=== PATIENT | female | born 1935 | race Caucasian/White ===

== ENCOUNTER 2017-03-10 14:35 | Inpatient (IN) | payer BC ==
[~2017-03-10] VITALS: Ht 144.8 cm; Wt 31.8 kg
[2017-03-10] MEDS ORDERED: IV NORMAL SALINE 1000 ML BAG IV ONE (15:00)
[2017-03-10 15:42] LABS: EOSINOPHILS % (AUTO) 0.1 % (0.0-7.0); HEMOGLOBIN 11.1 g/dL (10.9-14.3); MONOCYTES # (AUTO) 0.8 K/uL (2.0-10.0); PLATELET COUNT (AUTO) 600 K/uL (179-408)
[2017-03-10 15:44] LABS: BASOPHILS # (AUTO) 0.1 K/uL (0.0-8.0); BASOPHILS % (AUTO) 0.2 % (0.0-2.0); EOSINOPHILS # (AUTO) 0.1 K/uL (0.0-0.7); HEMATOCRIT 35.1 % (31.2-41.9); LYMPHOCYTES # (AUTO) 1.3 K/uL (20.0-40.0); MEAN CORPUSCULAR HEMOGLOBIN 22.9 uug (24.7-32.8); MEAN CORPUSCULAR HGB CONC 32 g/dL (32.3-35.6); MONOCYTES % (AUTO) 1.9 % (0.0-11.0); NEUTROPHILS % (AUTO) 94.8 % (38.5-71.5); RED BLOOD CELL COUNT(AUTO) 4.87 MIL/uL (3.63-4.92)
[2017-03-10 15:51] LABS: WHITE BLOOD COUNT (AUTO) 42.2 K/uL (3.8-11.8)
[2017-03-10 15:52] LABS: CARBON DIOXIDE 18 mmol/L (21-32); CHLORIDE 98 mmol/L (98-107); CREATININE 2.1 mg/dL (0.6-1.3); GLUCOSE 95 mg/dL (74-106); POTASSIUM 4.7 mmol/L (3.5-5.1); UREA NITROGEN, BLOOD 42 mg/dL (7-18)
[2017-03-10 15:58] LABS: ALANINE AMINOTRANSFERASE 6 U/L (14-59); ALKALINE PHOSPHATASE 132 U/L (50-136); ASPARTATE AMINOTRANSFERASE 9 U/L (15-37); BILIRUBIN,DIRECT 0.1 mg/dL (0.0-0.2); BILIRUBIN,TOTAL 0.3 mg/dL (0.2-1.0); LIPASE 39 U/L (73-393); TOTAL PROTEIN, SERUM 6.3 g/dL (6.4-8.2)
[2017-03-10] MEDS ORDERED: ONDANSETRON 4 MG/2 ML VIAL IV ONE (16:00)
[2017-03-10] MEDS ORDERED: METRONIDAZOLE 500 MG/NS 100 ML PIGGYBACK IV ONE (16:00)
[2017-03-10] MEDS ORDERED: LEVOFLOXACIN 250MG /D5W 250 MG in PREMIXED 1 EACH IV ONE (16:00)
[2017-03-10] MEDS ORDERED: ONDANSETRON 4 MG/2 ML VIAL ONE (16:22)
[2017-03-10] MEDS ORDERED: LEVOFLOXACIN 250MG /D5W 50 ML IV ONE (16:23)
[2017-03-10] MEDS ORDERED: METRONIDAZOLE 500 MG/NS 100ML 100 ML IV ONE (16:23)
[2017-03-10 16:25] LABS: BAND % (MANUAL) 7 % (0-10); LYMPHOCYTES % (MANUAL) 5 % (20-40); MONOCYTES % (MANUAL) 3 % (2-10); NEUTROPHILS % (MANUAL) 85 % (42-75)
[2017-03-10] MEDS ORDERED: LIPITOR (17:47)
[2017-03-10] MEDS ORDERED: CLARITIN (17:47)
[2017-03-10] MEDS ORDERED: PROBIOTIC (17:47)
[2017-03-10] MEDS ORDERED: PROTONIX (17:47)
[2017-03-10] MEDS ORDERED: IRON (17:47)
[2017-03-10] MEDS ORDERED: POTASSIUM (17:47)
--- NOTE | 2017-03-10 17:47 | NUR ---
Pt states she is unable to recall all of her home medications and doses at this time, pt's home medication information updated with minimal information provided.
--- NOTE | 2017-03-10 18:22 | NUR ---
mse completed, sbar report to homer rn, admit order written.
[2017-03-10 18:58] VITALS: BP 113/58
--- NOTE | 2017-03-10 19:00 | NUR ---
Received patient in bed alert oriented, no complain of pain at this time, admitted patient in the Tele Unit, under the care of Roman Lucas, belonging list done.
[2017-03-10 20:00] VITALS: BP 94/55
--- NOTE | 2017-03-10 20:30 | NUR ---
Dr Quintanilla came to see the patient, awaiting for admission orders.
[2017-03-11] VITALS: BP 97/50
[2017-03-11] MEDS ORDERED: ACETAMINOPHEN 325 MG TABLET PO PRN (00:45)
[2017-03-11] MEDS: PIPERACILLIN/TAZOBACTAM/D5W 2.25 G in PREMIXED 1 EACH IV SCH ×2 (00:45→06:25)
[2017-03-11] MEDS ORDERED: MORPHINE SULFATE 2 MG/1 ML DISP.SYRIN IV PRN (00:45)
[2017-03-11] MEDS: IV D5/ 0.9% NACL 1,000 ML IV PRN ×2 (01:12→20:29)
[2017-03-11] MEDS ORDERED: ONDANSETRON 4 MG/2 ML VIAL ONE ×2 (01:23→07:02)
[2017-03-11] MEDS ORDERED: PIPERACILLIN/TAZO 2.25 GM VIAL ONE (01:40)
[2017-03-11] MEDS: ONDANSETRON 4 MG/2 ML VIAL IV PRN ×3 (01:44→17:46)
[2017-03-11 04:00] VITALS: BP 112/55
[2017-03-11 07:08] LABS: EOSINOPHILS # (AUTO) 0.1 K/uL (0.0-0.7); IRON, SERUM 14 ug/dL (50-175); MEAN CORPUSCULAR HGB CONC 33 g/dL (32.3-35.6); MONOCYTES # (AUTO) 0.6 K/uL (2.0-10.0)
[2017-03-11 07:23] LABS: BASOPHILS % (AUTO) 0.1 % (0.0-2.0); EOSINOPHILS % (AUTO) 0.2 % (0.0-7.0); LYMPHOCYTES # (AUTO) 1.2 K/uL (20.0-40.0); LYMPHOCYTES % (AUTO) 4.2 % (20.5-51.5); MEAN CORPUSCULAR HEMOGLOBIN 23.2 uug (24.7-32.8); MEAN CORPUSCULAR VOLUME 71.3 fL (75.5-95.3); MONOCYTES % (AUTO) 2.2 % (0.0-11.0); NEUTROPHILS # (AUTO) 25.7 K/uL (1.8-8.9); NEUTROPHILS % (AUTO) 93.3 % (38.5-71.5); PLATELET COUNT (AUTO) 573 K/uL (179-408); RED BLOOD CELL COUNT(AUTO) 4.36 MIL/uL (3.63-4.92)
[2017-03-11 07:24] LABS: HEMATOCRIT 31.1 % (31.2-41.9); HEMOGLOBIN 10.1 g/dL (10.9-14.3); WHITE BLOOD COUNT (AUTO) 27.6 K/uL (3.8-11.8)
[2017-03-11 07:31] LABS: ALANINE AMINOTRANSFERASE 7 U/L (14-59); ALKALINE PHOSPHATASE 103 U/L (50-136); ASPARTATE AMINOTRANSFERASE 8 U/L (15-37); BILIRUBIN,TOTAL 0.3 mg/dL (0.2-1.0); CARBON DIOXIDE 18 mmol/L (21-32); CHLORIDE 106 mmol/L (98-107); CHOLESTEROL 95 mg/dL (<200); CREATININE 1.5 mg/dL (0.6-1.3); GLUCOSE 121 mg/dL (74-106); HDL CHOLESTEROL 13 mg/dL (40-60); MAGNESIUM 1.9 mg/dL (1.8-2.4); PHOSPHOROUS 4.4 mg/dL (2.5-4.9); POTASSIUM 4.1 mmol/L (3.5-5.1); TOTAL PROTEIN, SERUM 5.1 g/dL (6.4-8.2); TRIGLYCERIDES 103 MG/DL (30-150); UREA NITROGEN, BLOOD 35 mg/dL (7-18)
[2017-03-11 08:27] LABS: THYROID STIMULATING HORMONE 2.509 mIU/mL (0.358-3.740)
[2017-03-11] MEDS: PANTOPRAZOLE SODIUM 40 MG TABLET.DR PO SCH (08:28)
[2017-03-11] MEDS: ACIDOPHILUS/BULGARICUS CHEW TAB PO SCH ×2 (08:28→21:04)
[2017-03-11 08:40] LABS: BAND % (MANUAL) 20 % (0-10); BASOPHILS % (MANUAL) 1 % (0-2); EOSINOPHILS % (MANUAL) 1 % (0-8); LYMPHOCYTES % (MANUAL) 1 % (20-40); METAMYELOCYTES % 2 % (0-1); MONOCYTES % (MANUAL) 2 % (2-10); MYELOCYTES % 2 % (0-0); NEUTROPHILS % (MANUAL) 71 % (42-75)
[2017-03-11] MEDS: MORPHINE SULFATE 4 MG/1 ML DISP.SYRIN IV PRN (09:32)
[2017-03-11 11:41] VITALS: BP 113/92
--- NOTE | 2017-03-11 12:40 | NUR ---
MEDICATIONS TAKEN OUT OF PYXIS BY BUTCHER.
--- NOTE | 2017-03-11 13:15 | NUR ---
RECEIVED REPORT FROM JOSE/DARBY + ARACELI IZAGUIRRE Addendum: 03/11/17 at 1329 by AILYN SHEPPARD RN HARLAN DENNIS
[2017-03-11] MEDS ORDERED: PIPERACILLIN/TAZOBACTAM/D5W 2.25 G in PREMIXED 1 EACH IV SCH (14:00)
[2017-03-11 15:20] VITALS: BP 100/57
[2017-03-11] MEDS: VANCOMYCIN FOR PO/GT/NG USE PO SCH (17:46)
[2017-03-11 20:00] VITALS: BP 120/43
[2017-03-12] VITALS: BP 113/55
[2017-03-12] MEDS: VANCOMYCIN FOR PO/GT/NG USE PO SCH ×4 (00:08→18:11)
[2017-03-12 04:00] VITALS: BP 113/48
[2017-03-12] MEDS: PANTOPRAZOLE SODIUM 40 MG TABLET.DR PO SCH (06:16)
[2017-03-12 06:24] LABS: ALANINE AMINOTRANSFERASE < 6 U/L (14-59); ALKALINE PHOSPHATASE 79 U/L (50-136); ASPARTATE AMINOTRANSFERASE 9 U/L (15-37); BASOPHILS % (AUTO) 0.2 % (0.0-2.0); BILIRUBIN,TOTAL 0.2 mg/dL (0.2-1.0); CARBON DIOXIDE 22 mmol/L (21-32); CHLORIDE 109 mmol/L (98-107); EOSINOPHILS # (AUTO) 0.1 K/uL (0.0-0.7); EOSINOPHILS % (AUTO) 1.3 % (0.0-7.0); GLUCOSE 126 mg/dL (74-106); HEMATOCRIT 27.9 % (31.2-41.9); LYMPHOCYTES # (AUTO) 1.3 K/uL (20.0-40.0); LYMPHOCYTES % (AUTO) 15.7 % (20.5-51.5); MEAN CORPUSCULAR HEMOGLOBIN 22.9 uug (24.7-32.8); MEAN CORPUSCULAR HGB CONC 32 g/dL (32.3-35.6); MEAN CORPUSCULAR VOLUME 70.9 fL (75.5-95.3); MONOCYTES # (AUTO) 0.5 K/uL (2.0-10.0); MONOCYTES % (AUTO) 5.9 % (0.0-11.0); NEUTROPHILS # (AUTO) 6.1 K/uL (1.8-8.9); NEUTROPHILS % (AUTO) 76.9 % (38.5-71.5); PHOSPHOROUS 2.5 mg/dL (2.5-4.9); PLATELET COUNT (AUTO) 490 K/uL (179-408); RED BLOOD CELL COUNT(AUTO) 3.94 MIL/uL (3.63-4.92); TOTAL PROTEIN, SERUM 4.6 g/dL (6.4-8.2); UREA NITROGEN, BLOOD 18 mg/dL (7-18)
[2017-03-12 06:38] LABS: *OCCULT BLOOD STOOL POSITIVE (NEGATIVE)
[2017-03-12 06:48] LABS: POTASSIUM 2.8 mmol/L (3.5-5.1)
--- NOTE | 2017-03-12 06:54 | NUR ---
Called on-call Dr. Coyle regarding critical lab Potassium 2.8. Ordered state dose of 60meq one time. Albumin 1.4 and to wait for daytime staff for orders. Will endorse to oncoming staff. Orders noted and carried out.
[2017-03-12] MEDS ORDERED: POTASSIUM CHLORIDE 20 MEQ TAB.PRT.SR PO ONE ×2 (07:00→11:00)
[2017-03-12] MEDS: ACIDOPHILUS/BULGARICUS CHEW TAB PO SCH ×2 (09:03→21:38)
[2017-03-12] MEDS: MORPHINE SULFATE 4 MG/1 ML DISP.SYRIN IV PRN ×3 (10:07→21:57)
[2017-03-12 10:44] LABS: BAND % (MANUAL) 17 % (0-10); LYMPHOCYTES % (MANUAL) 16 % (20-40); MONOCYTES % (MANUAL) 7 % (2-10); NEUTROPHILS % (MANUAL) 60 % (42-75)
[2017-03-12 11:40] VITALS: BP 97/42
[2017-03-12] MEDS: IV D5/ 0.9% NACL 1,000 ML IV PRN (12:46)
[2017-03-12 16:00] VITALS: BP 120/41
--- NOTE | 2017-03-12 16:00 | NUR ---
seen and examined by Dinorah PROMOTION WRITER, with orders for colonoscopy on friday and colonoscopy prep tomorrow in AM, All orders noted and carried out, will endorse accordingly
[2017-03-12] MEDS ORDERED: GOLYTELY 4000 ML BOTTLE PO ONE (16:15)
[2017-03-12 20:00] VITALS: BP 104/68
[2017-03-12] MEDS: METRONIDAZOLE 500 MG/NS 100ML 500 MG in PREMIXED 1 EACH IV SCH (21:39)
[2017-03-13] MEDS: VANCOMYCIN FOR PO/GT/NG USE PO SCH ×4 (00:18→18:35)
[2017-03-13 04:00] VITALS: BP 92/64
[2017-03-13] MEDS: METRONIDAZOLE 500 MG/NS 100ML 500 MG in PREMIXED 1 EACH IV SCH ×3 (05:55→22:18)
[2017-03-13 06:50] LABS: ALANINE AMINOTRANSFERASE 9 U/L (14-59); ALKALINE PHOSPHATASE 72 U/L (50-136); ASPARTATE AMINOTRANSFERASE 10 U/L (15-37); BILIRUBIN,TOTAL 0.3 mg/dL (0.2-1.0); CARBON DIOXIDE 21 mmol/L (21-32); CHLORIDE 110 mmol/L (98-107); CREATININE 0.8 mg/dL (0.6-1.3); GLUCOSE 117 mg/dL (74-106); MAGNESIUM 1.8 mg/dL (1.8-2.4); PHOSPHOROUS 1.8 mg/dL (2.5-4.9); POTASSIUM 4.1 mmol/L (3.5-5.1); TOTAL PROTEIN, SERUM 4.5 g/dL (6.4-8.2); UREA NITROGEN, BLOOD 11 mg/dL (7-18)
[2017-03-13 07:00] LABS: BASOPHILS % (AUTO) 0.2 % (0.0-2.0); EOSINOPHILS # (AUTO) 0.1 K/uL (0.0-0.7); EOSINOPHILS % (AUTO) 1.7 % (0.0-7.0); HEMATOCRIT 28.6 % (31.2-41.9); LYMPHOCYTES # (AUTO) 1.2 K/uL (20.0-40.0); LYMPHOCYTES % (AUTO) 17.6 % (20.5-51.5); MEAN CORPUSCULAR HEMOGLOBIN 22.5 uug (24.7-32.8); MEAN CORPUSCULAR HGB CONC 32 g/dL (32.3-35.6); MEAN CORPUSCULAR VOLUME 71.6 fL (75.5-95.3); MONOCYTES # (AUTO) 0.6 K/uL (2.0-10.0); MONOCYTES % (AUTO) 9.4 % (0.0-11.0); NEUTROPHILS # (AUTO) 4.7 K/uL (1.8-8.9); NEUTROPHILS % (AUTO) 71.1 % (38.5-71.5); PLATELET COUNT (AUTO) 377 K/uL (179-408); RED BLOOD CELL COUNT(AUTO) 3.99 MIL/uL (3.63-4.92); WHITE BLOOD COUNT (AUTO) 6.6 K/uL (3.8-11.8)
[2017-03-13] MEDS: PANTOPRAZOLE SODIUM 40 MG TABLET.DR PO SCH (07:04)
[2017-03-13] MEDS: ACIDOPHILUS/BULGARICUS CHEW TAB PO SCH ×2 (08:26→20:45)
[2017-03-13] MEDS ORDERED: MAGNESIUM SULFATE/D5W 100 ML IV SCH (08:30)
[2017-03-13 10:53] LABS: BAND % (MANUAL) 13 % (0-10); BASOPHILS % (MANUAL) 1 % (0-2); EOSINOPHILS % (MANUAL) 2 % (0-8); LYMPHOCYTES % (MANUAL) 13 % (20-40); METAMYELOCYTES % 5 % (0-1); MONOCYTES % (MANUAL) 13 % (2-10); MYELOCYTES % 4 % (0-0); NEUTROPHILS % (MANUAL) 49 % (42-75)
[2017-03-13] MEDS: MORPHINE SULFATE 4 MG/1 ML DISP.SYRIN IV PRN ×2 (10:53→16:22)
[2017-03-13] MEDS ORDERED: GOLYTELY 4000 ML BOTTLE PO ONE (11:00)
[2017-03-13 11:03] VITALS: BP 99/46
[2017-03-13] MEDS ORDERED: NEUTRA PHOS PACKET PO ONE (12:15)
[2017-03-13 15:08] VITALS: BP 106/48
--- NOTE | 2017-03-13 19:00 | NUR ---
pt has been drinking golytly since 11am today. pt has been passing stool and on a clear liquid diet. new iv on the right elbow 22 gauge. The plan is for tomorrow to have an EGD and colonscopy. pt is agreeable with plan. Pt is aox4 cooperative. Pt shows no signs of respiratory distress at this time. pt stable at this time. continue to monitor pt
[2017-03-13 20:00] VITALS: BP 103/67
--- NOTE | 2017-03-13 20:30 | NUR ---
DELBERT SALINAS. CALLED IN, CANCELLED EGD AND COLONOSCOPY FOR FRIDAY,TALKED AND EXPLAINED TO PATIENT AND FAMILY,VERBALIZED UNDERSTANDING,PATIENT CONTINUE ON CONTACT ISOLATION FOR POSITIVE C DIFF STOOL.
[2017-03-14] MEDS: VANCOMYCIN FOR PO/GT/NG USE PO SCH ×5 (00:11→23:24)
[2017-03-14] MEDS: IV D5/ 0.9% NACL 1,000 ML IV PRN (03:53)
[2017-03-14 04:00] VITALS: BP 93/57
[2017-03-14] MEDS: METRONIDAZOLE 500 MG/NS 100ML 500 MG in PREMIXED 1 EACH IV SCH (06:18)
[2017-03-14] MEDS: PANTOPRAZOLE SODIUM 40 MG TABLET.DR PO SCH (06:20)
[2017-03-14 06:50] LABS: BASOPHILS % (AUTO) 0.3 % (0.0-2.0); EOSINOPHILS # (AUTO) 0.4 K/uL (0.0-0.7); EOSINOPHILS % (AUTO) 5.6 % (0.0-7.0); HEMOGLOBIN 9.7 g/dL (10.9-14.3); LYMPHOCYTES # (AUTO) 1.8 K/uL (20.0-40.0); LYMPHOCYTES % (AUTO) 27.8 % (20.5-51.5); MEAN CORPUSCULAR HEMOGLOBIN 23.1 uug (24.7-32.8); MEAN CORPUSCULAR HGB CONC 32 g/dL (32.3-35.6); MEAN CORPUSCULAR VOLUME 71.7 fL (75.5-95.3); MONOCYTES # (AUTO) 0.6 K/uL (2.0-10.0); MONOCYTES % (AUTO) 9.4 % (0.0-11.0); NEUTROPHILS # (AUTO) 3.7 K/uL (1.8-8.9); NEUTROPHILS % (AUTO) 56.9 % (38.5-71.5); PLATELET COUNT (AUTO) 375 K/uL (179-408); RED BLOOD CELL COUNT(AUTO) 4.18 MIL/uL (3.63-4.92); WHITE BLOOD COUNT (AUTO) 6.5 K/uL (3.8-11.8)
[2017-03-14 07:38] LABS: ALANINE AMINOTRANSFERASE < 6 U/L (14-59); ALKALINE PHOSPHATASE 71 U/L (50-136); ASPARTATE AMINOTRANSFERASE 11 U/L (15-37); BILIRUBIN,TOTAL 0.2 mg/dL (0.2-1.0); CARBON DIOXIDE 19 mmol/L (21-32); CHLORIDE 106 mmol/L (98-107); CREATININE 0.8 mg/dL (0.6-1.3); GLUCOSE 117 mg/dL (74-106); MAGNESIUM 1.7 mg/dL (1.8-2.4); PHOSPHOROUS 2.5 mg/dL (2.5-4.9); POTASSIUM 3.2 mmol/L (3.5-5.1); TOTAL PROTEIN, SERUM 4.5 g/dL (6.4-8.2); UREA NITROGEN, BLOOD 12 mg/dL (7-18)
[2017-03-14 07:48] LABS: *BILIRUBIN,URIN NEGATIVE (NEGATIVE); *BLOOD, URINE NEGATIVE (NEGATIVE); *CLARITY,URINE CLEAR (CLEAR); *COLOR,URINE YELLOW (YELLOW); *KETONES,URINE NEGATIVE (NEGATIVE); *PROTEIN,URINE 2+ (NEGATIVE); *UROBILINOGEN,URINE 0.2 E.U./dl (NORMAL); LEUKOCYTE ESTERASE ,URINE NEGATIVE (NEGATIVE); NITRITE, URINE POSITIVE (NEGATIVE); UGLUCOSE NEGATIVE (NEGATIVE)
[2017-03-14] MEDS: ACIDOPHILUS/BULGARICUS CHEW TAB PO SCH ×2 (08:03→20:33)
[2017-03-14 08:05] LABS: BACTERIA,URINE MODERATE /HPF (NONE SEEN); SQUAMOUS EPITHELIAL CELL,UR MODERATE /HPF (NONE SEEN)
[2017-03-14 08:31] LABS: BAND % (MANUAL) 7 % (0-10); EOSINOPHILS % (MANUAL) 5 % (0-8); LYMPHOCYTES % (MANUAL) 22 % (20-40); MONOCYTES % (MANUAL) 9 % (2-10); NEUTROPHILS % (MANUAL) 57 % (42-75)
[2017-03-14 11:30] VITALS: BP 105/73
[2017-03-14] MEDS: HYDROCODONE/APAP 5-325MG TABLET PO PRN ×2 (11:46→21:00)
[2017-03-14] MEDS ORDERED: MAGNESIUM OXIDE 400 MG TABLET PO ONE (12:45)
[2017-03-14] MEDS ORDERED: POTASSIUM CHLORIDE 20 MEQ TAB.PRT.SR PO ONE (12:45)
[2017-03-14] MEDS: METRONIDAZOLE 500 MG TABLET PO SCH ×2 (13:11→22:40)
[2017-03-14 15:21] VITALS: BP 94/57
[2017-03-14 19:00] VITALS: BP 106/60
--- NOTE | 2017-03-14 19:30 | NUR ---
RECEIVED PT ALERT AND ORIENTED. NO IV SITE FOR THE PT. DAY SHIFT NURSE REPORTED THAT IT GOT INFILTRATED . NO IV MEDICATION ON PT. PT HAS DRY SKIN AND REDNESS ON BOTH HEELS OF THE FEET. PUT PILLOW TO ELEVATE THE HEELS OF THE FEET. PT AWARE THAT SHE WILL BE NPO AT MIDNIGHT. CALL LIGHT WITHIN REACH. BED ALARM ON. WILL CONTINUE TO MONITOR.
[2017-03-15 04:00] VITALS: BP 105/66
[2017-03-15] MEDS: MORPHINE SULFATE 4 MG/1 ML DISP.SYRIN IV PRN ×3 (04:39→21:21)
[2017-03-15] MEDS: VANCOMYCIN FOR PO/GT/NG USE PO SCH ×3 (06:00→18:39)
[2017-03-15] MEDS: METRONIDAZOLE 500 MG TABLET PO SCH ×3 (06:00→22:32)
[2017-03-15] MEDS: PANTOPRAZOLE SODIUM 40 MG TABLET.DR PO SCH (06:42)
--- NOTE | 2017-03-15 06:42 | NUR ---
PT SLEPT T/O THE SHIFT. MEDICATION FOR 03/15 WAS HELD BECAUSE PT IS ON NPO MIDNIGHT SIP OF WATER IS NOT ENOUGH FOR THE 3 MEDICATIONS SINCE ITS BIG TABLET AND CAPSULES.PT HAVE 2 LIQUID STOOLS ON MY SHIFT. NPO MIDNIGHT. PT SHOWN NO SIGNS OF DISTRESS. CALL LIGHT WITHIN REACH. BED ALARM ON.
[2017-03-15 07:22] LABS: CARBON DIOXIDE 23 mmol/L (21-32); CHLORIDE 109 mmol/L (98-107); CREATININE 0.8 mg/dL (0.6-1.3); GLUCOSE 100 mg/dL (74-106); MAGNESIUM 1.8 mg/dL (1.8-2.4); PHOSPHOROUS 2.5 mg/dL (2.5-4.9); POTASSIUM 3.6 mmol/L (3.5-5.1); UREA NITROGEN, BLOOD 9 mg/dL (7-18)
[2017-03-15 07:24] LABS: BASOPHILS % (AUTO) 0.4 % (0.0-2.0); EOSINOPHILS # (AUTO) 0.3 K/uL (0.0-0.7); EOSINOPHILS % (AUTO) 3.7 % (0.0-7.0); HEMATOCRIT 28.2 % (31.2-41.9); HEMOGLOBIN 9.3 g/dL (10.9-14.3); LYMPHOCYTES # (AUTO) 1.2 K/uL (20.0-40.0); LYMPHOCYTES % (AUTO) 17.6 % (20.5-51.5); MEAN CORPUSCULAR HEMOGLOBIN 23.3 uug (24.7-32.8); MEAN CORPUSCULAR HGB CONC 33 g/dL (32.3-35.6); MEAN CORPUSCULAR VOLUME 70.7 fL (75.5-95.3); MONOCYTES # (AUTO) 0.7 K/uL (2.0-10.0); MONOCYTES % (AUTO) 10.5 % (0.0-11.0); NEUTROPHILS # (AUTO) 4.7 K/uL (1.8-8.9); NEUTROPHILS % (AUTO) 67.8 % (38.5-71.5); PLATELET COUNT (AUTO) 340 K/uL (179-408); RED BLOOD CELL COUNT(AUTO) 3.99 MIL/uL (3.63-4.92); WHITE BLOOD COUNT (AUTO) 6.9 K/uL (3.8-11.8)
[2017-03-15 08:43] LABS: BAND % (MANUAL) 8 % (0-10); BASOPHILS % (MANUAL) 1 % (0-2); EOSINOPHILS % (MANUAL) 4 % (0-8); LYMPHOCYTES % (MANUAL) 22 % (20-40); METAMYELOCYTES % 5 % (0-1); MONOCYTES % (MANUAL) 15 % (2-10); MYELOCYTES % 1 % (0-0); NEUTROPHILS % (MANUAL) 44 % (42-75)
[2017-03-15] MEDS: ACIDOPHILUS/BULGARICUS CHEW TAB PO SCH ×3 (09:00→21:11)
[2017-03-15] MEDS: IV D5/ 0.9% NACL 1,000 ML IV PRN (09:09)
[2017-03-15 11:06] VITALS: BP 110/67
--- NOTE | 2017-03-15 11:55 | NUR ---
1138: patient transferred to GI lab on bed. I gave report to RNs Alana and Lyndsay. Patient is stable. Belongings in room. Addendum: 03/15/17 at 1632 by SAMARA VARELA RN 1307: Patient returned from GI lab. Received report from Nurse Roseann Mayo.
[2017-03-15] MEDS ORDERED: IRR STERIL WATER FOR IRR 1000 ML BOTTLE IR ONE (12:36)
[2017-03-15] MEDS ORDERED: IV D5W-0.9% NS 1000 ML BAG IV ONE (12:36)
[2017-03-15] MEDS ORDERED: ETOMIDATE 20 MG/10 ML VIAL MC ONE (12:36)
[2017-03-15] MEDS ORDERED: ONDANSETRON 4 MG/2 ML VIAL ONE (12:54)
[2017-03-15] MEDS ORDERED: FLUCONAZOLE 200 MG/NS 100ML IV 100 MG in PREMIXED 1 EACH IV SCH (14:00)
[2017-03-15 14:57] VITALS: BP 110/53
[2017-03-15] MEDS ORDERED: FLUCONAZOLE 200 MG TABLET PO ONE (15:00)
[2017-03-15] MEDS: NYSTATIN SUSPENSION 5 ML LIQUID UDC PO SCH ×2 (17:52→21:11)
[2017-03-15 19:00] VITALS: BP 103/60
--- NOTE | 2017-03-15 19:30 | NUR ---
RECEIVED PT AWAKE, ALERT AND ORIENTED. PT SHOWS NO SIGNS OF DISTRESS. IV INTACT AND PATENT. CALL LIGHT WITHIN REACH. BED ALARM ON . SAFETY AND COMFORT PROVIDED. WILL CONTINUE TO MONITOR.
[2017-03-16] MEDS: VANCOMYCIN FOR PO/GT/NG USE PO SCH ×5 (00:05→23:08)
[2017-03-16] MEDS: IV D5/ 0.9% NACL 1,000 ML IV PRN (00:42)
[2017-03-16 05:00] VITALS: BP 98/57
[2017-03-16] MEDS: METRONIDAZOLE 500 MG TABLET PO SCH ×3 (05:43→21:04)
[2017-03-16] MEDS: PANTOPRAZOLE SODIUM 40 MG TABLET.DR PO SCH (06:28)
--- NOTE | 2017-03-16 06:45 | NUR ---
PT SLEPT THROUGHOUT THE SHIFT. PRESCRIBED MEDICATION GIVEN. PT TOLERATED WELL THE MEDICATION. PT GIVEN ONE PAIN MEDICATION ON MY SHIFT. PT SHOWS NO SIGNS OF DISTRESS. SAFETY AND COMFORT PROVIDED.
[2017-03-16 07:11] LABS: BASOPHILS % (AUTO) 0.2 % (0.0-2.0); EOSINOPHILS # (AUTO) 0.1 K/uL (0.0-0.7); EOSINOPHILS % (AUTO) 1.3 % (0.0-7.0); LYMPHOCYTES # (AUTO) 1.7 K/uL (20.0-40.0); LYMPHOCYTES % (AUTO) 15.6 % (20.5-51.5); MEAN CORPUSCULAR HGB CONC 33 g/dL (32.3-35.6); MEAN CORPUSCULAR VOLUME 70.7 fL (75.5-95.3); MONOCYTES # (AUTO) 0.8 K/uL (2.0-10.0); MONOCYTES % (AUTO) 7.5 % (0.0-11.0); NEUTROPHILS # (AUTO) 8.1 K/uL (1.8-8.9); NEUTROPHILS % (AUTO) 75.4 % (38.5-71.5); PLATELET COUNT (AUTO) 384 K/uL (179-408); RED BLOOD CELL COUNT(AUTO) 4.53 MIL/uL (3.63-4.92)
[2017-03-16 07:27] LABS: HEMOGLOBIN 10.4 g/dL (10.9-14.3); WHITE BLOOD COUNT (AUTO) 10.7 K/uL (3.8-11.8)
--- NOTE | 2017-03-16 07:30 | NUR ---
ON BED, RESTING WELL. DENIES DISTRESS
[2017-03-16 07:35] LABS: ALKALINE PHOSPHATASE 61 U/L (50-136); ASPARTATE AMINOTRANSFERASE 10 U/L (15-37); BILIRUBIN,TOTAL 0.3 mg/dL (0.2-1.0); CARBON DIOXIDE 20 mmol/L (21-32); CHLORIDE 111 mmol/L (98-107); CREATININE 0.7 mg/dL (0.6-1.3); GLUCOSE 127 mg/dL (74-106); MAGNESIUM 1.8 mg/dL (1.8-2.4); PHOSPHOROUS 2.8 mg/dL (2.5-4.9); POTASSIUM 3.7 mmol/L (3.5-5.1); TOTAL PROTEIN, SERUM 4.3 g/dL (6.4-8.2); UREA NITROGEN, BLOOD 8 mg/dL (7-18)
[2017-03-16 08:04] LABS: ALANINE AMINOTRANSFERASE < 6 U/L (14-59)
[2017-03-16] MEDS: ACIDOPHILUS/BULGARICUS CHEW TAB PO SCH ×2 (09:18→21:09)
[2017-03-16] MEDS: NYSTATIN SUSPENSION 5 ML LIQUID UDC PO SCH ×4 (09:18→21:05)
[2017-03-16 09:35] LABS: BAND % (MANUAL) 11 % (0-10); BASOPHILS % (MANUAL) 1 % (0-2); EOSINOPHILS % (MANUAL) 2 % (0-8); LYMPHOCYTES % (MANUAL) 16 % (20-40); METAMYELOCYTES % 2 % (0-1); MONOCYTES % (MANUAL) 9 % (2-10); MYELOCYTES % 1 % (0-0); NEUTROPHILS % (MANUAL) 58 % (42-75)
--- NOTE | 2017-03-16 09:49 | NUR ---
BRP REQUESTED, OOB TO BATHROOM TOLERATED WELL .ASSISTED BACK TO BED REQUESTED. HAD X 1 LOOSE STOOL MODERATE AMOUNT. REFUSED IVF , WANTED HEPLOCK OUT. AWARE WILL DISCUSS WITH ROUNDING MD, VERBALIZED UNDERSTANDING.
[2017-03-16 11:37] VITALS: BP 95/59
--- NOTE | 2017-03-16 12:00 | NUR ---
PATIENT REFUSED IVF, DR CORNELIUS AWARE, WILL CONVERT TO HEPLOCK REQUESTED.
--- NOTE | 2017-03-16 12:00 | NUR ---
DR CORNELIUS AWARE OF INABILITY TO OBTAIN URINE VIA CATHETHERIZATION ,MADE NEW ORDER AND CARRIED OUT.
[2017-03-16] MEDS: PROTEIN SUPPLEMENT (PROSTAT) 30 ML LIQUID PO SCH (12:27)
[2017-03-16] MEDS: FLUCONAZOLE 100 MG TABLET PO SCH (13:02)
[2017-03-16 15:31] VITALS: BP 107/63
[2017-03-16 16:22] LABS: *BLOOD, URINE NEGATIVE (NEGATIVE); *CLARITY,URINE SLIGHTLY CLOUDY (CLEAR); *COLOR,URINE Brown (YELLOW); *KETONES,URINE TRACE (NEGATIVE); *PROTEIN,URINE 2+ (NEGATIVE); *UROBILINOGEN,URINE 0.2 E.U./dl (NORMAL); LEUKOCYTE ESTERASE ,URINE NEGATIVE (NEGATIVE); NITRITE, URINE POSITIVE (NEGATIVE); PH,URINE 5.5 (5.0-8.0); UGLUCOSE NEGATIVE (NEGATIVE)
[2017-03-16 16:42] LABS: *BILIRUBIN,URIN NEGATIVE (NEGATIVE)
[2017-03-16 16:43] LABS: BACTERIA,URINE FEW /HPF (NONE SEEN); CALCIUM OXALATE CRYSTALS,UR FEW /HPF (NONE SEEN); MUCUS,URINE MANY /LPF (0-FEW); SQUAMOUS EPITHELIAL CELL,UR MODERATE /HPF (NONE SEEN); WBC,URINE 0-3 /HPF (0-3); YEAST,URINE FEW /HPF (NONE SEEN)
--- NOTE | 2017-03-16 17:55 | NUR ---
DAUGHTER AT BEDSIDE, SUPPORTIVE OF CARE. WILL ADVANCE TO REGULAR DIET.
--- NOTE | 2017-03-16 18:44 | NUR ---
CONTINUED LOOSE STOOL, FOUL ODOR. ABLE TO GET OOB TO [facility] AND BACK. TOLERATING FOOD, FLUIDS WELL.
[2017-03-16 19:54] VITALS: BP 109/66
--- NOTE | 2017-03-16 20:00 | NUR ---
RECEIVED PT AWAKE IN BED, SHE DENIES PAIN OR ANY DISCOMFORT. DAUGHTER AT BEDSIDE. NO LOOSE STOOL AT PRESENT. SAFETY AND COMFORT MEASURES IN PLACE. CALL LIGHT WITHIN PT'S REACH WILL CONTINUE TO MONITOR PT
--- NOTE | 2017-03-17 | NUR ---
PT HAD ONE EPISODE OF LOOSE STOOL WITH NO ODOR
[2017-03-17 04:27] VITALS: BP 100/58
--- NOTE | 2017-03-17 05:23 | NUR ---
PT SLEPT WELL THROUGHOUT THE NIGHT, SHE DENIES PAIN OR ANY DISCOMFORT. SHE HAD 3 EPISODES OF LOOSE STOOLS ON THIS SHIFT. NO FURTHER CONCERNS AT THIS TIME. SAFETY AND COMFORT MEASURES IN PLACE
[2017-03-17] MEDS: VANCOMYCIN FOR PO/GT/NG USE PO SCH ×3 (06:10→17:46)
[2017-03-17] MEDS: METRONIDAZOLE 500 MG TABLET PO SCH ×3 (06:10→21:40)
[2017-03-17] MEDS: PANTOPRAZOLE SODIUM 40 MG TABLET.DR PO SCH (06:10)
[2017-03-17 06:56] LABS: BASOPHILS % (AUTO) 0.5 % (0.0-2.0); EOSINOPHILS # (AUTO) 0.3 K/uL (0.0-0.7); EOSINOPHILS % (AUTO) 3.2 % (0.0-7.0); HEMATOCRIT 30.7 % (31.2-41.9); LYMPHOCYTES # (AUTO) 1.6 K/uL (20.0-40.0); LYMPHOCYTES % (AUTO) 20.1 % (20.5-51.5); MEAN CORPUSCULAR HEMOGLOBIN 23.1 uug (24.7-32.8); MEAN CORPUSCULAR HGB CONC 33 g/dL (32.3-35.6); MEAN CORPUSCULAR VOLUME 70.4 fL (75.5-95.3); MONOCYTES # (AUTO) 0.6 K/uL (2.0-10.0); MONOCYTES % (AUTO) 7.9 % (0.0-11.0); NEUTROPHILS # (AUTO) 5.5 K/uL (1.8-8.9); NEUTROPHILS % (AUTO) 68.3 % (38.5-71.5); PLATELET COUNT (AUTO) 353 K/uL (179-408); RED BLOOD CELL COUNT(AUTO) 4.35 MIL/uL (3.63-4.92)
[2017-03-17 07:02] LABS: ALANINE AMINOTRANSFERASE < 6 U/L (14-59); ALKALINE PHOSPHATASE 58 U/L (50-136); ASPARTATE AMINOTRANSFERASE 5 U/L (15-37); BILIRUBIN,TOTAL 0.5 mg/dL (0.2-1.0); CARBON DIOXIDE 20 mmol/L (21-32); CHLORIDE 110 mmol/L (98-107); CREATININE 0.7 mg/dL (0.6-1.3); GLUCOSE 104 mg/dL (74-106); POTASSIUM 3.5 mmol/L (3.5-5.1); UREA NITROGEN, BLOOD 10 mg/dL (7-18)
[2017-03-17 07:44] LABS: MAGNESIUM 1.8 mg/dL (1.8-2.4); PHOSPHOROUS 2.6 mg/dL (2.5-4.9)
[2017-03-17] MEDS: PROTEIN SUPPLEMENT (PROSTAT) 30 ML LIQUID PO SCH (08:00)
--- NOTE | 2017-03-17 08:00 | NUR ---
Awake, alert, oriented x 3. Discusses plan of care
[2017-03-17] MEDS: ACIDOPHILUS/BULGARICUS CHEW TAB PO SCH ×2 (08:54→20:40)
[2017-03-17] MEDS: NYSTATIN SUSPENSION 5 ML LIQUID UDC PO SCH ×4 (08:54→20:40)
[2017-03-17 09:41] LABS: BAND % (MANUAL) 3 % (0-10); EOSINOPHILS % (MANUAL) 5 % (0-8); LYMPHOCYTES % (MANUAL) 19 % (20-40); MONOCYTES % (MANUAL) 7 % (2-10); NEUTROPHILS % (MANUAL) 66 % (42-75)
[2017-03-17] MEDS: HYDROCODONE/APAP 5-325MG TABLET PO PRN (09:55)
[2017-03-17 11:02] VITALS: BP 105/57
[2017-03-17] MEDS ORDERED: BISACODYL 10 MG SUPP.RECT RC ONE (13:45)
[2017-03-17] MEDS ORDERED: MAGNESIUM CITRATE 296 ML BOTTLE PO ONE (13:45)
[2017-03-17] MEDS ORDERED: FLEET ENEMA 133 ML BOTTLE RC ONE (13:45)
[2017-03-17] MEDS ORDERED: GOLYTELY 4000 ML BOTTLE PO ONE (13:45)
[2017-03-17] MEDS: FLUCONAZOLE 100 MG TABLET PO SCH (14:00)
--- NOTE | 2017-03-17 14:00 | NUR ---
Midline placed to right upper arm g 20. IVF resumed.
--- NOTE | 2017-03-17 14:15 | NUR ---
Scheduled fro colonoscopy, consent signed by patient. Bowel prep started. Refused Mag Citrate and Dulcolax Suppository.
[2017-03-17 15:00] VITALS: BP 100/66
[2017-03-17] MEDS: MORPHINE SULFATE 4 MG/1 ML DISP.SYRIN IV PRN ×2 (15:50→20:46)
--- NOTE | 2017-03-17 19:00 | NUR ---
Left elbow with tereza, change of dressing done. Patient drinking Golytely. Endorsed for further care.
[2017-03-17 20:00] VITALS: BP 127/70
--- NOTE | 2017-03-17 20:00 | NUR ---
PATIENT AWAKE IN BED, DRINKING GOLYTELY FOR COLONOSCOPY PREP IN AM. PATIENT IS A/O X4. NO C/O PAIN AT THIS TIME. DRESSING NOTED TO LEFT ARM/ELBOW, C/D/I. VSS. PATIENT STATED SHE DOES NOT WANT TO TAKE ANY PO MEDS TONIGHT WHILE SHE IS PREPPING FOR COLONOSCOPY IN AM. EDUCATED PATIENT ON THE IMPORTANCE OF TAKING MEDICATIONS SINCE THEY ARE ANTIBIOTICS, BUT PATIENT STILL REFUSED. NO RESP. DISTRESS NOTED. IVF INFUSING WELL TO RIGHT UPPER ARM MID-LINE. CALL LIGHT IN REACH. ALL NEEDS ATTENDED. WILL CONTINUE TO MONITOR
[2017-03-17] MEDS: ONDANSETRON 4 MG/2 ML VIAL IV PRN (20:47)
--- NOTE | 2017-03-17 20:50 | NUR ---
PATIENT C/O PAIN IN HIPS AND LOWER BACK. ALSO C/O NAUSEA. PATIENT GIVEN MORPHINE 1MG IV AND ZOFRAN 4MG IV PRN PER SURGERY MANAGER. VSS. CALL LIGHT IN REACH. ALL NEEDS ATTENDED. WILL CONTINUE TO MONITOR AND ASSESS.
--- NOTE | 2017-03-17 22:00 | NUR ---
PATIENT EDUCATED ON IMPORTANCE OF ELEVATING BILATERAL FEET FOR SWELLING AND TO HELP RELIEVE REDNESS. PINK NOTED TO BOTTOM OF HEELS. PATIENT REFUSED FOR BILATERAL FEET TO BE ELEVATED ON PILLOW. WILL CONTINUE TO MONITOR.
--- NOTE | 2017-03-18 | NUR ---
PATIENT WAS ONLY ABLE TO FINISH 2000ML'S OF GOLYTELY. PATIENT IS VERY NAUSEOUS AND STATED ITS VERY HARD TO TAKE ALL OF IT. INFORMED PATIENT THAT FASHION MARKETER ORDERED, INSERTION OF NG TUBE IF UNABLE TO TOLERATE PO INTAKE OF GOLYTELY. PATIENT REFUSED FOR NG TUBE. QUALITY TESTER NOTIFIED. WILL CONTINUE TO MONITOR.
[2017-03-18] MEDS ORDERED: MAGNESIUM CITRATE 296 ML BOTTLE PO ONE (02:30)
[2017-03-18] MEDS: ONDANSETRON 4 MG/2 ML VIAL IV PRN ×2 (02:32→22:26)
[2017-03-18] MEDS: MORPHINE SULFATE 4 MG/1 ML DISP.SYRIN IV PRN ×3 (02:32→22:26)
--- NOTE | 2017-03-18 02:35 | NUR ---
PATIENT AWAKE, C/O PAIN IN LEFT ARM/ELBOW. PATIENT ALSO FEELS NAUSEOUS. PATIENT GIVEN MORPHINE 1MG IV AND ZOFRAN 4MG IV PRN PER LINER CHECKER. VSS. WILL CONTINUE TO MONITOR. PATIENT IS HAVING LOOSE YELLOWISH LIQUID STOOL. LINER CHECKER NOTIFIED.
[2017-03-18 04:41] VITALS: BP 102/51
[2017-03-18] MEDS: METRONIDAZOLE 500 MG TABLET PO SCH (05:42)
[2017-03-18] MEDS: PANTOPRAZOLE SODIUM 40 MG TABLET.DR PO SCH (05:43)
[2017-03-18] MEDS: VANCOMYCIN FOR PO/GT/NG USE PO SCH ×5 (05:43→23:46)
[2017-03-18] MEDS: IV D5/ 0.9% NACL 1,000 ML IV PRN (06:00)
--- NOTE | 2017-03-18 06:08 | NUR ---
PATIENT ASLEEP IN BED. CONTINUED WITH SMALL AMOUNTS OF YELLOW LIQUID NOTED IN DIAPER WITH SMALL PARTICLES. NOTIFIED WHEAT WASHER. WILL CALL AND INFORM DR. TOMAS. ALL NEEDS ATTENDED.
--- NOTE | 2017-03-18 06:35 | NUR ---
RECEIVED CALL BACK FROM DR. STRATTON REGARDING COLONOSCOPY PREP. RECEIVED ORDER FOR PATIENT TO HAVE FLEET ENEMA X2 AND FOR PATIENT TO FINISH OFF GOLYTELY. PATIENT AGREED TO FLEET ENEMA BUT REFUSED GOLYTELY, MAKES PATIENT VERY NAUSEOUS. WILL CONTINUE TO MONITOR AND ASSESS.
[2017-03-18] MEDS ORDERED: FLEET ENEMA 133 ML BOTTLE RC ONE ×2 (06:45→07:15)
--- NOTE | 2017-03-18 07:11 | NUR ---
CLARIFICATION REGARDING MAG-CITRATE. WAS PREVIOUSLY ORDERED TO BE GIVEN DURING DAYSHIFT. PATIENT REFUSED. RE-ORDERED PER DIRECTOR OF RESTAURANT OPERATIONS. CALLED PHARMACY TO CLARIFY THAT MEDICATION WAS ACCIDENTLY RE-ORDERED PER DIRECTOR OF RESTAURANT OPERATIONS. BUT NEVER GIVEN. DUE TO PATIENT REFUSING,
[2017-03-18 08:00] VITALS: BP 102/52
[2017-03-18] MEDS: PROTEIN SUPPLEMENT (PROSTAT) 30 ML LIQUID PO SCH (08:00)
[2017-03-18] MEDS: ACIDOPHILUS/BULGARICUS CHEW TAB PO SCH ×2 (08:32→21:26)
[2017-03-18] MEDS: NYSTATIN SUSPENSION 5 ML LIQUID UDC PO SCH ×4 (08:33→21:26)
[2017-03-18 12:40] VITALS: BP 117/61
[2017-03-18] MEDS: METRONIDAZOLE 500 MG/NS 100ML 500 MG in PREMIXED 1 EACH IV SCH ×2 (13:56→22:02)
[2017-03-18] MEDS: FLUCONAZOLE 100 MG TABLET PO SCH (14:16)
[2017-03-18] MEDS ORDERED: EPHEDRINE SULFATE 50 MG/ML AMPUL MC ONE (15:26)
[2017-03-18] MEDS ORDERED: IV NORMAL SALINE 1000 ML BAG IV ONE (15:26)
[2017-03-18] MEDS ORDERED: PROPOFOL 200 MG/20 ML BOTTLE IV ONE ×2 (15:26)
[2017-03-18] MEDS ORDERED: LIDOCAINE HCL 1% 20 ML VIAL MC ONE (15:28)
[2017-03-18 16:07] VITALS: BP 123/52
[2017-03-18 19:00] VITALS: BP 107/45
--- NOTE | 2017-03-18 20:00 | NUR ---
RECEIVED PATIENT AWAKE IN BED. A/O X3. DENIES PAIN OR DISCOMFORT AT THIS TIME. NO RESP. DISTRESS NOTED. VSS. MID-LINE INTACT AND NOTED TO RIGHT UPPER ARM WITH IVF INFUSING WELL. ON CONTACT ISOLATION FOR C-DIFF. DRESSING NOTED TO LEFT ELBOW, INTACT. BED ALARM ON. CALL LIGHT IN REACH. ALL NEEDS ATTENDED. WILL CONTINUE TO MONITOR.
[2017-03-19] MEDS: IV D5/ 0.9% NACL 1,000 ML IV PRN ×2 (01:14→21:21)
[2017-03-19] MEDS: VANCOMYCIN FOR PO/GT/NG USE PO SCH ×3 (05:30→17:28)
[2017-03-19] MEDS: METRONIDAZOLE 500 MG/NS 100ML 500 MG in PREMIXED 1 EACH IV SCH ×3 (05:52→22:05)
[2017-03-19 06:00] VITALS: BP 118/57
[2017-03-19] MEDS: PANTOPRAZOLE SODIUM 40 MG TABLET.DR PO SCH (06:17)
--- NOTE | 2017-03-19 06:50 | NUR ---
PATIENT AWAKE IN BED. SLEPT WELL. DENIES PAIN. PATIENT EDUCATED ON IMPORTANCE OF ELEVATING BILATERAL FEET FOR SWELLING AND TO HELP RELIEVE REDNESS. PINK NOTED TO BOTTOM OF HEELS. PATIENT REFUSED FOR BILATERAL FEET TO BE ELEVATED ON PILLOW. WILL CONTINUE TO MONITOR.
[2017-03-19 06:56] LABS: BASOPHILS % (AUTO) 0.4 % (0.0-2.0); EOSINOPHILS # (AUTO) 0.1 K/uL (0.0-0.7); EOSINOPHILS % (AUTO) 1.4 % (0.0-7.0); HEMATOCRIT 27.7 % (31.2-41.9); HEMOGLOBIN 9.2 g/dL (10.9-14.3); LYMPHOCYTES # (AUTO) 1.5 K/uL (20.0-40.0); LYMPHOCYTES % (AUTO) 14.8 % (20.5-51.5); MEAN CORPUSCULAR HEMOGLOBIN 23.3 uug (24.7-32.8); MEAN CORPUSCULAR HGB CONC 33 g/dL (32.3-35.6); MEAN CORPUSCULAR VOLUME 70.1 fL (75.5-95.3); MONOCYTES # (AUTO) 0.8 K/uL (2.0-10.0); MONOCYTES % (AUTO) 7.8 % (0.0-11.0); NEUTROPHILS # (AUTO) 7.8 K/uL (1.8-8.9); NEUTROPHILS % (AUTO) 75.6 % (38.5-71.5); PLATELET COUNT (AUTO) 314 K/uL (179-408); RED BLOOD CELL COUNT(AUTO) 3.96 MIL/uL (3.63-4.92); WHITE BLOOD COUNT (AUTO) 10.4 K/uL (3.8-11.8)
--- NOTE | 2017-03-19 07:00 | NUR ---
PATIENT ON BED ASLEEP, A AND O X 4 NO ACUTE DISTRESS NOTED. WITH RIGHT UPPER MIDLINE INTACT AND PATENT RUNNING, D5NS @60CC/HR, WELL TOLERATED. ON CONTACT ISOLATION FOR C.DIFF. PRECAUTIONS OBSERVED AT ALL TIMES. NO COMPLAINTS OF PAIN AND DISCOMFORT AT THIS TIME. ALL COMFORT MEASURES PROVIDED. CALL LIGHT WITHIN REACH. WILL CONTINUE TO MONITOR CLOSELY.
[2017-03-19] MEDS: NYSTATIN SUSPENSION 5 ML LIQUID UDC PO SCH ×4 (08:17→21:21)
[2017-03-19] MEDS: PROTEIN SUPPLEMENT (PROSTAT) 30 ML LIQUID PO SCH (08:18)
[2017-03-19] MEDS: ACIDOPHILUS/BULGARICUS CHEW TAB PO SCH ×2 (08:18→21:21)
[2017-03-19 08:47] LABS: CARBON DIOXIDE 20 mmol/L (21-32); CREATININE 0.8 mg/dL (0.6-1.3); GLUCOSE 113 mg/dL (74-106); MAGNESIUM 1.4 mg/dL (1.8-2.4); PHOSPHOROUS 6.4 mg/dL (2.5-4.9); UREA NITROGEN, BLOOD 9 mg/dL (7-18)
[2017-03-19 08:55] LABS: CHLORIDE 107 mmol/L (98-107)
[2017-03-19 09:05] LABS: POTASSIUM 2.8 mmol/L (3.5-5.1)
--- NOTE | 2017-03-19 10:30 | NUR ---
CHANGED DRESSING ON LEFT ELBOW, WELL TOLERATED, PICTURES TAKEN OF LEFT ELBOW AND BILATERAL HEELS AND PLACE IN CHART.
[2017-03-19] MEDS ORDERED: ALPRAZOLAM 0.25 MG TABLET PO PRN (11:00)
[2017-03-19 11:25] LABS: BAND % (MANUAL) 6 % (0-10); EOSINOPHILS % (MANUAL) 2 % (0-8); LYMPHOCYTES % (MANUAL) 14 % (20-40); MONOCYTES % (MANUAL) 7 % (2-10); NEUTROPHILS % (MANUAL) 71 % (42-75)
[2017-03-19] MEDS: MORPHINE SULFATE 4 MG/1 ML DISP.SYRIN IV PRN (11:32)
[2017-03-19 12:00] VITALS: BP 104/77
[2017-03-19] MEDS: FLUCONAZOLE 100 MG TABLET PO SCH (13:17)
[2017-03-19 15:12] VITALS: BP 118/52
[2017-03-19] MEDS ORDERED: POTASSIUM CHLORIDE 20 MEQ TAB.PRT.SR PO ONE ×2 (15:15→23:00)
[2017-03-19] MEDS: MAGNESIUM SULFATE/D5W 100 ML IV SCH ×4 (18:54→22:38)
[2017-03-19 19:00] VITALS: BP 96/54
--- NOTE | 2017-03-19 22:00 | NUR ---
received to care, td erickson, pleasant upon approach. remains on contact isolation for c diff. iv to right upper midline patent. continues to have liquist stool. kept clean and dry. no distress noted. call light in reach.
--- NOTE | 2017-03-19 22:40 | NUR ---
Magnesium Sulfate 1gm x 4 bags completed, patient tolerated.
[2017-03-20] MEDS: VANCOMYCIN FOR PO/GT/NG USE PO SCH ×5 (00:12→23:20)
[2017-03-20 04:00] VITALS: BP 121/54
[2017-03-20] MEDS: METRONIDAZOLE 500 MG/NS 100ML 500 MG in PREMIXED 1 EACH IV SCH ×3 (05:16→21:14)
[2017-03-20] MEDS: PANTOPRAZOLE SODIUM 40 MG TABLET.DR PO SCH (06:18)
[2017-03-20 06:53] LABS: BASOPHILS % (AUTO) 0.4 % (0.0-2.0); EOSINOPHILS # (AUTO) 0.2 K/uL (0.0-0.7); EOSINOPHILS % (AUTO) 1.4 % (0.0-7.0); HEMATOCRIT 30.3 % (31.2-41.9); HEMOGLOBIN 9.8 g/dL (10.9-14.3); LYMPHOCYTES # (AUTO) 1.5 K/uL (20.0-40.0); LYMPHOCYTES % (AUTO) 14.1 % (20.5-51.5); MEAN CORPUSCULAR HEMOGLOBIN 22.8 uug (24.7-32.8); MEAN CORPUSCULAR HGB CONC 32 g/dL (32.3-35.6); MEAN CORPUSCULAR VOLUME 70.7 fL (75.5-95.3); MONOCYTES # (AUTO) 0.8 K/uL (2.0-10.0); MONOCYTES % (AUTO) 7.4 % (0.0-11.0); NEUTROPHILS # (AUTO) 8.3 K/uL (1.8-8.9); NEUTROPHILS % (AUTO) 76.7 % (38.5-71.5); PLATELET COUNT (AUTO) 277 K/uL (179-408); RED BLOOD CELL COUNT(AUTO) 4.28 MIL/uL (3.63-4.92); WHITE BLOOD COUNT (AUTO) 10.9 K/uL (3.8-11.8)
--- NOTE | 2017-03-20 07:30 | NUR ---
RECEIVED REPORT FROM ROLLER MACHINE OPERATOR NURSE, PATIENT IN BED AWAKE, REQUESTING ORAL CARE, REPORTS DIFFICULTY EATING AND MOVING THE PAIN IS INTOLERABLE. CURRENTLY IN BED, BED ALARM ON. SIDE RAILS UP X2. NOTED REDNESS ON BILATERAL HEALS.
[2017-03-20 07:43] LABS: CARBON DIOXIDE 18 mmol/L (21-32); CHLORIDE 114 mmol/L (98-107); CREATININE 0.6 mg/dL (0.6-1.3); GLUCOSE 102 mg/dL (74-106); MAGNESIUM 2.1 mg/dL (1.8-2.4); PHOSPHOROUS 2.3 mg/dL (2.5-4.9); POTASSIUM 3.2 mmol/L (3.5-5.1); UREA NITROGEN, BLOOD 9 mg/dL (7-18)
[2017-03-20] MEDS: PROTEIN SUPPLEMENT (PROSTAT) 30 ML LIQUID PO SCH (08:23)
[2017-03-20] MEDS: ACIDOPHILUS/BULGARICUS CHEW TAB PO SCH ×2 (08:24→20:37)
[2017-03-20] MEDS: NYSTATIN SUSPENSION 5 ML LIQUID UDC PO SCH ×4 (08:24→20:37)
[2017-03-20] MEDS: POTASSIUM CHLORIDE 10 MEQ, LIDOCAINE-MPF 1% 1 ML in IV DEXTROSE 5% 100 ML IV SCH ×4 (11:41→18:06)
[2017-03-20 11:48] VITALS: BP 112/60
[2017-03-20 13:27] LABS: BAND % (MANUAL) 3 % (0-10); EOSINOPHILS % (MANUAL) 2 % (0-8); LYMPHOCYTES % (MANUAL) 11 % (20-40); MONOCYTES % (MANUAL) 12 % (2-10); NEUTROPHILS % (MANUAL) 72 % (42-75)
[2017-03-20] MEDS: FLUCONAZOLE 100 MG TABLET PO SCH (14:38)
[2017-03-20 15:48] VITALS: BP 104/46
[2017-03-20] MEDS ORDERED: NEUTRA PHOS PACKET PO ONE (16:15)
[2017-03-20] MEDS ORDERED: CALCIUM GLUCONATE IV 2 GM in IV DEXTROSE 5% 250 ML IV ONE (16:45)
--- NOTE | 2017-03-20 19:01 | NUR ---
PATIENT IS CURRENTLY IN BED, AND IS REFUSING TO HAVE AIR MATTRESS BLOWN UP. EXPLAINED TO PATIENT THAT HER SKIN ON THE BACK OF HER HEALS ARE RED, AND OFFERED PILLOWS TO FLOAT THE HEALS. PATIENT REFUSED TO FLOAT HEALS. MIGHTY SHAKE AND BOOST ORDERED BY DIETITIAN FOR MALNUTRITION. PATIENT IS VERY NON-COMPLIANT. DAUGHTER STATED THAT SHE IS GOING TO TAKE THE PATIENT HOME HOME, BUT DISCHARGE PLANNING NEEDS TO BE NOTIFIED DUE TO THE EXTENUATING NEEDS OF THE PATIENT.
[2017-03-20 20:00] VITALS: BP 144/75
--- NOTE | 2017-03-20 20:00 | NUR ---
RECEIVED PATIENT AWAKE IN BED WITH DAUGHTER AT BEDSIDE. PATIENT IS A/O X3. C/O GENERALIZED PAIN. VS WNL. IVF INFUSING WELL TO RIGHT UPPER ARM, MID-LINE INTACT. PATIENT IS ON CONTACT ISOLATION FOR C-DIFF. ON RA SATING 95%. PATIENT NOTED ON AIR MATTRESS, BUT IS REFUSING FOR IT TO BE INFLATED. PATIENT STATED "IT REALLY HURTS MY BACK, I CANT TAKE IT." PATIENT ALSO EDUCATED ON THE IMPORTANCE OF OFF-LOADING BILATERAL HEELS FOR PRESSURE RELIEF, REDNESS NOTED TO BOTH HEELS. PATIENT REFUSED TO OFF-LOAD. MEPILEX APPLIED TO HEELS FOR BREAKDOWN PREVENTION. BED ALARM ON. CALL LIGHT IN REACH. ALL NEEDS ATTENDED. WILL CONTINUE TO MONITOR.
[2017-03-20] MEDS: MORPHINE SULFATE 4 MG/1 ML DISP.SYRIN IV PRN (20:30)
[2017-03-21] MEDS: IV D5/ 0.9% NACL 1,000 ML IV PRN (00:33)
[2017-03-21 04:00] VITALS: BP 155/69
[2017-03-21] MEDS: METRONIDAZOLE 500 MG/NS 100ML 500 MG in PREMIXED 1 EACH IV SCH ×2 (05:34→13:49)
[2017-03-21] MEDS: VANCOMYCIN FOR PO/GT/NG USE PO SCH (05:58)
[2017-03-21] MEDS: PANTOPRAZOLE SODIUM 40 MG TABLET.DR PO SCH (06:00)
--- NOTE | 2017-03-21 06:29 | NUR ---
PATIENT ASLEEP. SLEPT WELL THROUGHOUT THE NIGHT. VSS. IVF INFUSING WELL. CALL LIGHT IN REACH. ALL NEEDS ATTENDED. ALL NEEDS ATTENDED.
--- NOTE | 2017-03-21 07:10 | NUR ---
RECEIVED REPORT FROM RISK CONTROL DIRECTOR NURSE, PATIENT IN BED ASLEEP, NO EVIDENCE OF DISTRESS NOTED, BED IN LOW POSITION, SIDE RAILS UP X2. BED ALARM ON. UPON EXITING THE ROOM, PATIENT CALLED OUT THAT SHE NEEDS A DIAPER CHANGE. ALL NEEDS MET.
[2017-03-21] MEDS: NYSTATIN SUSPENSION 5 ML LIQUID UDC PO SCH ×2 (08:15→12:25)
[2017-03-21] MEDS: ACIDOPHILUS/BULGARICUS CHEW TAB PO SCH (08:15)
[2017-03-21] MEDS: PROTEIN SUPPLEMENT (PROSTAT) 30 ML LIQUID PO SCH (08:15)
[2017-03-21 09:47] LABS: BASOPHILS % (AUTO) 0.4 % (0.0-2.0); EOSINOPHILS # (AUTO) 0.1 K/uL (0.0-0.7); EOSINOPHILS % (AUTO) 1.3 % (0.0-7.0); HEMATOCRIT 34.5 % (31.2-41.9); LYMPHOCYTES # (AUTO) 1.2 K/uL (20.0-40.0); LYMPHOCYTES % (AUTO) 11.2 % (20.5-51.5); MEAN CORPUSCULAR HGB CONC 32 g/dL (32.3-35.6); MEAN CORPUSCULAR VOLUME 72.3 fL (75.5-95.3); MONOCYTES # (AUTO) 0.7 K/uL (2.0-10.0); MONOCYTES % (AUTO) 6.9 % (0.0-11.0); NEUTROPHILS # (AUTO) 8.7 K/uL (1.8-8.9); NEUTROPHILS % (AUTO) 80.2 % (38.5-71.5); PLATELET COUNT (AUTO) 349 K/uL (179-408); RED BLOOD CELL COUNT(AUTO) 4.77 MIL/uL (3.63-4.92); WHITE BLOOD COUNT (AUTO) 10.9 K/uL (3.8-11.8)
[2017-03-21 10:23] LABS: CARBON DIOXIDE 17 mmol/L (21-32); CHLORIDE 110 mmol/L (98-107); CREATININE 0.7 mg/dL (0.6-1.3); GLUCOSE 118 mg/dL (74-106); MAGNESIUM 2.3 mg/dL (1.8-2.4); PHOSPHOROUS 2.7 mg/dL (2.5-4.9); POTASSIUM 5.1 mmol/L (3.5-5.1); UREA NITROGEN, BLOOD 11 mg/dL (7-18)
[2017-03-21 11:49] VITALS: BP 123/67
[2017-03-21 12:01] LABS: LYMPHOCYTES % (MANUAL) 10 % (20-40); MONOCYTES % (MANUAL) 7 % (2-10); NEUTROPHILS % (MANUAL) 83 % (42-75)
[2017-03-21] MEDS ORDERED: VANCOMYCIN FOR PO/GT/NG USE PO SCH (12:15)
[2017-03-21] MEDS: MORPHINE SULFATE 4 MG/1 ML DISP.SYRIN IV PRN (12:36)
[2017-03-21] MEDS ORDERED: ACID1TAB4 PO (13:44)
[2017-03-21] MEDS ORDERED: ALPR0.25 PO (13:44)
[2017-03-21] MEDS ORDERED: HYDR-3326 PO (13:44)
[2017-03-21] MEDS ORDERED: VANC500V PO (13:44)
[2017-03-21] MEDS ORDERED: FLUC100T PO (13:44)
[2017-03-21] MEDS ORDERED: NYST5ORA PO (13:44)
[2017-03-21] MEDS: FLUCONAZOLE 100 MG TABLET PO SCH (13:50)
[2017-03-21 15:53] VITALS: BP 103/70
--- NOTE | 2017-03-21 16:20 | NUR ---
Patient was given discharge instructions, all medications reviewed, belongings gathered, and IV removed for transfer to shelter facility. No evidence of distress noted at this time. patient in bed awaiting greens picker for transfer.
--- NOTE | 2017-03-21 17:27 | NUR ---
Patient picked up by ambulance company for transfer.
== END 2017-03-21 17:20 | DRG 871 ==
LOC: ER 14:36 → TELE 18:30 → MED 03-12 22:35
PROVIDERS: ADMIT Internal Medicine; ATTEND Internal Medicine
PROC: 0DB48ZX Excision of Esophagogastric Junction, Via Natural or Artificial Opening Endoscopic, Diagnostic (ICD-10-PCS; 2017-03-15)
PROC: 0DB68ZX Excision of Stomach, Via Natural or Artificial Opening Endoscopic, Diagnostic (ICD-10-PCS; principal; 2017-03-15 11:46)
PROC: 05H533Z Insertion of Infusion Device into Right Subclavian Vein, Percutaneous Approach (ICD-10-PCS; 2017-03-17)
PROC: 0DBG8ZX Excision of Left Large Intestine, Via Natural or Artificial Opening Endoscopic, Diagnostic (ICD-10-PCS; 2017-03-18)
DX: A41.9 Sepsis, unspecified organism (principal); E43 Unspecified severe protein-calorie malnutrition; N17.0 Acute kidney failure with tubular necrosis; I50.23 Acute on chronic systolic (congestive) heart failure; A04.72 Enterocolitis due to Clostridium difficile, not specified as recurrent; B37.81 Candidal esophagitis; D68.59 Other primary thrombophilia; E87.2 Acidosis; K51.00 Ulcerative (chronic) pancolitis without complications; Z68.1 Body mass index [BMI] 19.9 or less, adult; J98.11 Atelectasis; K92.1 Melena; E86.0 Dehydration; Z85.43 Personal history of malignant neoplasm of ovary; Z85.528 Personal history of other malignant neoplasm of kidney; R62.7 Adult failure to thrive; K21.0 Gastro-esophageal reflux disease with esophagitis; K44.9 Diaphragmatic hernia without obstruction or gangrene; E87.6 Hypokalemia; E83.42 Hypomagnesemia; E83.51 Hypocalcemia; K64.9 Unspecified hemorrhoids; K76.89 Other specified diseases of liver; Z87.891 Personal history of nicotine dependence; Z90.5 Acquired absence of kidney; Z85.42 Personal history of malignant neoplasm of other parts of uterus; Z90.710 Acquired absence of both cervix and uterus; M48.54XD Collapsed vertebra, not elsewhere classified, thoracic region, subsequent encounter for fracture with routine healing; M48.56XD Collapsed vertebra, not elsewhere classified, lumbar region, subsequent encounter for fracture with routine healing; M19.022 Primary osteoarthritis, left elbow
CPT/HCPCS: 36415; 70030-TC; 71045; 82378; 83550; 83605; 83690; 83735; 84100; 84443; 85025; 85730; 86625; 87040; 87046; 87086; 87177; 88342; 89055; 92526; 92610; 93005; 93307; 97116; 97530; A4217; A4663; C1758; J0610; J1450; J1956; J2001; J2270; J2405; J2543; J3370; J3475; J3480; J3490; J7030; J7040; J7042; J7060